=== PATIENT | male | born 1945 | race Caucasian/White ===

== ENCOUNTER 2017-11-06 17:16 | Inpatient (IN) | payer MEDICARE, MEDICAID ==
[~2017-11-06] VITALS: Ht 162.6 cm; Wt 52.7 kg
[~2017-11-06 17:16] MED LIST: ASPI81TA31 PO; ATOR40TA PO; BENA20TA9 PO; CARV25TA2 PO; CLOP75TA15 PO; DOCU100C36 PO; EPLE25TA10 PO; FURO40TA5 PO; HYDR50CA5 PO; LISI-603 PO; MELO-107 PO; OXYB10TA PO; PREG50CA PO; SIMV20TA6 PO; TRAM50TA PO
[2017-11-06] MEDS ORDERED: IV NORMAL SALINE 500 ML BAG IV ONE (17:30)
--- NOTE | 2017-11-06 17:32 | NUR ---
PATIENT SHIELDED PATIENT UNABLE TO LIFT HEAD 111@5.6 W/ GRID END EXAM 16:23
[2017-11-06] MEDS ORDERED: TRAZ-214 PO (17:36)
[2017-11-06] MEDS ORDERED: GABA600T2 PO (17:36)
[2017-11-06] MEDS ORDERED: QUET25TA PO (17:36)
[2017-11-06] MEDS ORDERED: OMEP20TA5 PO (17:36)
[2017-11-06] MEDS ORDERED: FINA5TAB3 PO (17:36)
[2017-11-06] MEDS ORDERED: ALBU2.5V38 NEB (17:36)
[2017-11-06] MEDS ORDERED: HYDR-548 PO (17:36)
[2017-11-06] MEDS ORDERED: LIDO TP (17:36)
[2017-11-06] MEDS ORDERED: POTA10TA10 PO (17:36)
[2017-11-06] MEDS ORDERED: LIDO30AD10 TD (17:36)
[2017-11-06] MEDS ORDERED: NITR0.4T48 SL (17:36)
[2017-11-06] MEDS ORDERED: FERR325T28 PO (17:36)
[2017-11-06] MEDS ORDERED: ISOS60TA4 PO (17:36)
[2017-11-06] MEDS ORDERED: TAMS0.4C34 PO (17:36)
[2017-11-06] MEDS ORDERED: FURO40TA5 PO (17:36)
[2017-11-06] MEDS ORDERED: MAGN400T6 PO (17:36)
[2017-11-06] MEDS ORDERED: METO-357 PO (17:36)
[2017-11-06] MEDS ORDERED: BENZ200C53 PO (17:36)
[2017-11-06] MEDS ORDERED: METH-406 PO (17:36)
[2017-11-06] MEDS ORDERED: LISI2.5T2 PO (17:36)
[2017-11-06 17:47] LABS: BASOPHILS # (AUTO) 0.1 K/uL (0.0-8.0); EOSINOPHILS # (AUTO) 0.2 K/uL (0.0-0.7); EOSINOPHILS % (AUTO) 3.2 % (0.0-7.0); HEMATOCRIT 37.1 % (36.7-47.1); HEMOGLOBIN 11.9 g/dL (12.5-16.3); LYMPHOCYTES # (AUTO) 0.9 K/uL (20.0-40.0); LYMPHOCYTES % (AUTO) 15.7 % (20.5-51.5); MEAN CORPUSCULAR HEMOGLOBIN 28.7 uug (23.8-33.4); MEAN CORPUSCULAR HGB CONC 32 g/dL (32.5-36.3); MEAN CORPUSCULAR VOLUME 89.6 fL (73.0-96.2); MONOCYTES # (AUTO) 0.4 K/uL (2.0-10.0); MONOCYTES % (AUTO) 6.8 % (0.0-11.0); NEUTROPHILS # (AUTO) 4.2 K/uL (1.8-8.9); NEUTROPHILS % (AUTO) 73.3 % (38.5-71.5); PLATELET COUNT (AUTO) 134 K/uL (152-348); RED BLOOD CELL COUNT(AUTO) 4.14 MIL/uL (4.06-5.63); WHITE BLOOD COUNT (AUTO) 5.7 K/uL (3.6-10.2)
[2017-11-06] MEDS ORDERED: FUROSEMIDE 40 MG/4 ML VIAL ONE (17:52)
[2017-11-06 17:54] LABS: CARBON DIOXIDE 28 mmol/L (21-32); CHLORIDE 104 mmol/L (98-107); CREATININE 1.2 mg/dL (0.6-1.3); GLUCOSE 111 mg/dL (74-106); POTASSIUM 4.3 mmol/L (3.5-5.1); UREA NITROGEN, BLOOD 28 mg/dL (7-18)
[2017-11-06] MEDS ORDERED: MORPHINE SULFATE 2 MG/1 ML DISP.SYRIN IV ONE (18:00)
[2017-11-06] MEDS ORDERED: FUROSEMIDE 20 MG/2 ML VIAL IV ONE (18:00)
[2017-11-06] MEDS ORDERED: MORPHINE SULFATE 4 MG/1 ML DISP.SYRIN ONE (18:01)
--- NOTE | 2017-11-06 18:02 | NUR ---
Patient is resting comfortably on gurney while watching bedside TV, for telemetry admission@this time.
[2017-11-06 18:05] LABS: ALANINE AMINOTRANSFERASE 33 U/L (16-63); ALKALINE PHOSPHATASE 121 U/L (50-136); ASPARTATE AMINOTRANSFERASE 25 U/L (15-37); BILIRUBIN,DIRECT 0.2 mg/dL (0.0-0.2); BILIRUBIN,TOTAL 0.7 mg/dL (0.2-1.0); TOTAL PROTEIN, SERUM 7.1 g/dL (6.4-8.2)
--- NOTE | 2017-11-06 18:18 | NUR ---
Urinal provided. Comfort and safety measures maintained.
--- NOTE | 2017-11-06 18:24 | NUR ---
Patient is admitted to 2nd floor TELEMETRY , under the care of Dr. Brian Quiroz. MRSA swab sent to lab, pending assigned bed & nurse from 2nd floor studio operations engineer in charge Rohoni or next shift studio operations engineer in charge at this time.
[2017-11-06 19:00] VITALS: BP 120/72
--- NOTE | 2017-11-06 19:08 | NUR ---
SBAR to WALLY Pritchard accordingly, still for telemetry admission
--- NOTE | 2017-11-06 20:02 | NUR ---
REPORT GIVEN TO TELEMETRY NURSE, WALLY BROWN
--- NOTE | 2017-11-06 20:25 | NUR ---
Pt. admitted to TELEMETRY, under care of Dr. NAIR Belongs List completed
--- NOTE | 2017-11-06 21:28 | NUR ---
2044 PT RECEIVED IN MED SURG/ TELE. PT COMPLAINING OF PAIN. AWAITING ORDERS. 2100 PT RESTING IN ROOM .AWAITING ON ORDER. Addendum: 11/06/17 at 2145 by Darby Merchant RN 2129 PT REMOVING LEADS. NOTIFIED. THAT PT AWAITING PAIN MEDS. Addendum: 11/06/17 at 2152 by Darby Merchant RN 2150 MARQUITA NAIR AWARE. DETERMINING WHICH MEDICATION TO ORDER. PT REFUSING ANY QUESTIONS OR ANSWERS TO COMPLETE ADMISSION ASSESSMENT PROFILE. Addendum: 11/07/17 at 0206 by Darby Merchant RN 2300 PT RESTLESS. SHOUTING FOR MORE PAIN MEDICATION. BUSINESS OFFICE ASSISTANT , CHARGE NURSE AT BEDSIDE. 0100 HALDOL GIVEN. BUMEX IVBP GIVEN. TELE BOX BACK ON. PT REFUSING TO ANSWER ANY QUESTION FOR ASSESSMENT PROFILE 0200 PT ASLEEP Addendum: 11/07/17 at 0730 by Darby Merchant RN 0300 PT ASLEEP 0500 PT C/O PAIN 0700 REPORT GIVEN TO DAY SHIFT NURSE . PT RESTING IN ROOM
[2017-11-06] MEDS ORDERED: MORPHINE SULFATE 2 MG/1 ML DISP.SYRIN IV STA (21:53)
[2017-11-06] MEDS ORDERED: POTASSIUM CHLORIDE 20 MEQ TAB.PRT.SR PO ONE (22:00)
[2017-11-06] MEDS ORDERED: BUMETANIDE INJ 8 MG in IV DEXTROSE 5% 48 ML IV ONE (22:00)
[2017-11-06] MEDS ORDERED: Z GUARD REMEDY PASTE 57 GM TUBE TOP PRN (22:00)
[2017-11-06] MEDS ORDERED: NITROGLYCERIN 0.4 MG/TAB BOTTLE SL PRN (22:00)
[2017-11-06] MEDS: ALBUTEROL SULFATE 2.5 MG/3 ML NEBU NEB SCH ×3 (22:00→23:03)
[2017-11-06] MEDS ORDERED: MAGNESIUM OXIDE 400 MG TABLET PO ONE (22:00)
[2017-11-06] MEDS ORDERED: LIDOCAINE 5% PATCH TD SCH (22:00)
[2017-11-06] MEDS ORDERED: ONDANSETRON 4 MG/2 ML VIAL IV PRN (22:00)
[2017-11-06] MEDS ORDERED: ACETAMINOPHEN 325 MG TABLET PO PRN (22:00)
[2017-11-06] MEDS ORDERED: MORPHINE SULFATE 4 MG/1 ML DISP.SYRIN IV STA (22:16)
--- NOTE | 2017-11-06 22:34 | NUR ---
After meds was scanned, pt refused HHN tx. No distress noted. supervisor assembly was in the room. Meds return.
[2017-11-06] MEDS ORDERED: BUMETANIDE 2.5 MG/10 ML VIAL ONE (23:53)
[2017-11-06] MEDS ORDERED: BUMETANIDE 1 MG/4 ML VIAL ONE (23:54)
[2017-11-06] MEDS: OXYCODONE HCL 5 MG TABLET PO PRN (23:55)
[2017-11-07] MEDS ORDERED: HALOPERIDOL LACTATE 5 MG/1 ML VIAL IM ONE (00:15)
[2017-11-07] MEDS: ALBUTEROL SULFATE 2.5 MG/3 ML NEBU NEB SCH ×8 (01:34→23:11)
--- NOTE | 2017-11-07 01:34 | NUR ---
Pt asleep. No distress noted. HHN tx not given. WALLY Pastor notified.
[2017-11-07 04:10] LABS: BASOPHILS # (AUTO) 0.1 K/uL (0.0-8.0); BASOPHILS % (AUTO) 1.4 % (0.0-2.0); EOSINOPHILS # (AUTO) 0.3 K/uL (0.0-0.7); EOSINOPHILS % (AUTO) 5.1 % (0.0-7.0); HEMATOCRIT 34.6 % (36.7-47.1); HEMOGLOBIN 11.2 g/dL (12.5-16.3); LYMPHOCYTES # (AUTO) 1.2 K/uL (20.0-40.0); MEAN CORPUSCULAR HEMOGLOBIN 28.6 uug (23.8-33.4); MEAN CORPUSCULAR HGB CONC 32 g/dL (32.5-36.3); MEAN CORPUSCULAR VOLUME 88.9 fL (73.0-96.2); MONOCYTES # (AUTO) 0.4 K/uL (2.0-10.0); MONOCYTES % (AUTO) 7.2 % (0.0-11.0); NEUTROPHILS # (AUTO) 4.2 K/uL (1.8-8.9); NEUTROPHILS % (AUTO) 67.3 % (38.5-71.5); PLATELET COUNT (AUTO) 117 K/uL (152-348); WHITE BLOOD COUNT (AUTO) 6.2 K/uL (3.6-10.2)
[2017-11-07 04:22] VITALS: BP 106/71
[2017-11-07 04:26] LABS: ALANINE AMINOTRANSFERASE 33 U/L (16-63); ALKALINE PHOSPHATASE 104 U/L (50-136); ASPARTATE AMINOTRANSFERASE 21 U/L (15-37); BILIRUBIN,TOTAL 0.6 mg/dL (0.2-1.0); CARBON DIOXIDE 30 mmol/L (21-32); CHLORIDE 107 mmol/L (98-107); CHOLESTEROL 112 mg/dL (<200); CREATININE 1.1 mg/dL (0.6-1.3); GLUCOSE 87 mg/dL (74-106); HDL CHOLESTEROL 32 mg/dL (40-60); MAGNESIUM 1.9 mg/dL (1.8-2.4); PHOSPHOROUS 4.2 mg/dL (2.5-4.9); POTASSIUM 3.9 mmol/L (3.5-5.1); TOTAL PROTEIN, SERUM 6.5 g/dL (6.4-8.2); TRIGLYCERIDES 59 MG/DL (30-150); UREA NITROGEN, BLOOD 27 mg/dL (7-18)
[2017-11-07 05:00] LABS: THYROID STIMULATING HORMONE 7.999 mIU/mL (0.358-3.740)
[2017-11-07] MEDS: PANTOPRAZOLE SODIUM 40 MG TABLET.DR PO SCH (06:50)
[2017-11-07] MEDS: OXYCODONE HCL 5 MG TABLET PO PRN ×4 (06:50→18:20)
--- NOTE | 2017-11-07 08:00 | NUR ---
received patient awake on bed. on tele sinus rhythm with HR of 87. no signs of respiratory distress noted.safety measures initiated. kept call light within reach
[2017-11-07] MEDS: FINASTERIDE 5 MG TABLET PO SCH (08:53)
[2017-11-07] MEDS: LISINOPRIL 5 MG TABLET PO SCH (08:54)
[2017-11-07] MEDS: FERROUS SULFATE 325 MG TABEC PO SCH (08:55)
[2017-11-07] MEDS: TAMSULOSIN HCL 0.4 MG CAP.SR.24H PO SCH (08:55)
[2017-11-07] MEDS: ISOSORBIDE MONONITRATE 60 MG TAB.SR.24H PO SCH (08:55)
[2017-11-07] MEDS: MAGNESIUM OXIDE 400 MG TABLET PO SCH (08:55)
[2017-11-07] MEDS: METHOCARBAMOL 750 MG TABLET PO SCH ×4 (08:56→20:11)
[2017-11-07] MEDS ORDERED: METOPROLOL SUCCINATE XL 50 MG TAB.SR.24H PO SCH (09:00)
--- NOTE | 2017-11-07 09:00 | NUR ---
IV placement was pulled out by patient. IV site shifted from LFA to L hand, guage 22, IV site patent and intact.
[2017-11-07] MEDS: MAGNESIUM HYDROXIDE 30 ML LIQUID UDC PO PRN (09:01)
[2017-11-07] MEDS: ENOXAPARIN SODIUM 40 MG/0.4 ML DISP.SYRIN SQ SCH (09:07)
[2017-11-07] MEDS ORDERED: FUROSEMIDE 40 MG/4 ML VIAL IV ONE (11:00)
--- NOTE | 2017-11-07 11:00 | NUR ---
patient complaint of SOB and generalized body pain with a pain scale of 10. lung assessment done. audible sounds heard bilaterally on lower lobe of the lungs. sumitd Gael HILL to provide breathing treatment. Lasix given via IV. oxycodone given.
[2017-11-07 11:35] VITALS: BP 129/64
[2017-11-07] MEDS: LIDOCAINE 5% PATCH TD SCH (11:35)
[2017-11-07] MEDS: NORMAL SALINE NASAL 45 ML BOTTLE NS PRN ×2 (14:58→20:48)
[2017-11-07 15:24] VITALS: BP 111/63
--- NOTE | 2017-11-07 16:00 | NUR ---
seen and examined by Dr. Denilson Quiroz.
[2017-11-07] MEDS ORDERED: LACTULOSE 20 G/30 ML LIQUID UDC PO ONE (18:30)
[2017-11-07] MEDS ORDERED: BISACODYL 10 MG SUPP.RECT RC PRN (18:30)
--- NOTE | 2017-11-07 18:39 | NUR ---
on tele sinus rhythm with HR of 72. no sign of respiratory distress. vital signs WNL. safety measures maintained at all times.
[2017-11-07 19:00] VITALS: BP 120/68
--- NOTE | 2017-11-07 19:20 | NUR ---
RECEIVED SHIFT REPORT. PT IN BED, NO COMPLAINTS AT THIS TIME. TELE SINUS RHYTHM.
[2017-11-07] MEDS ORDERED: BUMETANIDE INJ 4 MG in IV DEXTROSE 5% 24 ML IV ONE (19:45)
[2017-11-07] MEDS ORDERED: BUMETANIDE 1 MG/4 ML VIAL ONE (20:14)
[2017-11-07] MEDS ORDERED: TRAZODONE 100 MG TABLET ONE (20:25)
[2017-11-07] MEDS ORDERED: QUETIAPINE FUMARATE 25 MG TABLET PO SCH (21:00)
[2017-11-07] MEDS ORDERED: TRAZODONE 100 MG TABLET PO SCH ×2 (21:00)
[2017-11-08] VITALS: BP 119/63
[2017-11-08] MEDS: OXYCODONE HCL 5 MG TABLET PO PRN ×5 (00:14→15:13)
--- NOTE | 2017-11-08 00:37 | NUR ---
20 G IV ACCESS IN LEFT HAND PULLED OUT BY PT. NEW IV ACCESS ESTABLISHED IN LEFT FOREARM, 22 G. IV ACCESS FLUSHING WELL.
[2017-11-08] MEDS: ALBUTEROL SULFATE 2.5 MG/3 ML NEBU NEB SCH ×3 (02:37→11:30)
[2017-11-08 04:00] VITALS: BP 135/75
[2017-11-08] MEDS: MAGNESIUM HYDROXIDE 30 ML LIQUID UDC PO PRN ×2 (04:00→12:04)
--- NOTE | 2017-11-08 05:46 | NUR ---
Patient slept poorly t/o shift. A/O x 4. TELE SR with PVC with occasional pacing. O2 2L NC. Patient had good urine output t/o shift. Patient c/o of 9/10 neck, back and knee pain t/o shift. Meds given, stated relief. Small BM today. Skin intact. Fall precaution observed t/o shift. Bed alarm kept on t/o shift despite patient's request to have it turned on. Room is left clutter free. Bed in low and locked position. Afebrile. All meds given as ordered. All needs met.
[2017-11-08] MEDS: PANTOPRAZOLE SODIUM 40 MG TABLET.DR PO SCH (06:13)
[2017-11-08] MEDS ORDERED: CARVEDILOL 3.125 MG TABLET PO SCH (08:00)
[2017-11-08] MEDS: LIDOCAINE 5% PATCH TD SCH (08:21)
[2017-11-08] MEDS: FERROUS SULFATE 325 MG TABEC PO SCH (08:22)
[2017-11-08] MEDS: TAMSULOSIN HCL 0.4 MG CAP.SR.24H PO SCH (08:22)
[2017-11-08] MEDS: MAGNESIUM OXIDE 400 MG TABLET PO SCH (08:22)
[2017-11-08] MEDS: LISINOPRIL 5 MG TABLET PO SCH (08:23)
[2017-11-08] MEDS: METHOCARBAMOL 750 MG TABLET PO SCH ×2 (08:23→13:22)
[2017-11-08] MEDS: FINASTERIDE 5 MG TABLET PO SCH (08:23)
[2017-11-08] MEDS: ENOXAPARIN SODIUM 40 MG/0.4 ML DISP.SYRIN SQ SCH (08:25)
[2017-11-08] MEDS ORDERED: ASPIRIN EC 81 MG TABLET.DR PO SCH (09:00)
[2017-11-08] MEDS: ISOSORBIDE MONONITRATE 60 MG TAB.SR.24H PO SCH (09:06)
--- NOTE | 2017-11-08 11:30 | NUR ---
SEEN AND EXAMINED BY DR YUDI NAIR. DISCUSSED WITH BM STATUS OF PATIENT. RECEIVED ORDER TO ADMINISTER BISACODYL SUPPOSITORY AND ANOTHER MILK OF MAGNESIA. ORDERS READ BACK AND CARRIED OUT.
[2017-11-08 11:53] VITALS: BP 136/73
[2017-11-08 12:12] LABS: BASOPHILS # (AUTO) 0.1 K/uL (0.0-8.0); BASOPHILS % (AUTO) 0.8 % (0.0-2.0); EOSINOPHILS # (AUTO) 0.1 K/uL (0.0-0.7); EOSINOPHILS % (AUTO) 1.6 % (0.0-7.0); HEMATOCRIT 36.5 % (36.7-47.1); HEMOGLOBIN 11.7 g/dL (12.5-16.3); LYMPHOCYTES # (AUTO) 0.9 K/uL (20.0-40.0); LYMPHOCYTES % (AUTO) 12.6 % (20.5-51.5); MEAN CORPUSCULAR HEMOGLOBIN 28.7 uug (23.8-33.4); MEAN CORPUSCULAR HGB CONC 32 g/dL (32.5-36.3); MEAN CORPUSCULAR VOLUME 89.1 fL (73.0-96.2); MONOCYTES # (AUTO) 0.4 K/uL (2.0-10.0); MONOCYTES % (AUTO) 5.8 % (0.0-11.0); NEUTROPHILS % (AUTO) 79.2 % (38.5-71.5); PLATELET COUNT (AUTO) 147 K/uL (152-348); WHITE BLOOD COUNT (AUTO) 7.5 K/uL (3.6-10.2)
[2017-11-08 13:31] LABS: CARBON DIOXIDE 32 mmol/L (21-32); CHLORIDE 99 mmol/L (98-107); GLUCOSE 98 mg/dL (74-106); MAGNESIUM 2.2 mg/dL (1.8-2.4); PHOSPHOROUS 3.3 mg/dL (2.5-4.9); POTASSIUM 3.6 mmol/L (3.5-5.1); UREA NITROGEN, BLOOD 23 mg/dL (7-18)
[2017-11-08] MEDS ORDERED: METO2.5T2 PO (13:40)
[2017-11-08] MEDS ORDERED: CARV3.12 PO (13:40)
[2017-11-08] MEDS ORDERED: CLON0.5T PO (13:42)
[2017-11-08 15:39] VITALS: BP 136/77
--- NOTE | 2017-11-08 16:50 | NUR ---
Discharge INSTRUCTIONS GIVEN TO PT. pT VERBALIZED UNDERSTANDING. pT TO f/u with pmd within 1 week. Pt to go back to [facility] assisted living. Pt to f/u with vaccinations with his PMD no sob noted upon d/c. Pt tolerates o2 sat of 96% on r/a. Pt breathing much better compared to yesterday. Pt sent back via [employer] voucher.
[2017-12-06] MEDS ORDERED: TRAZODONE 100 MG TABLET PO SCH (21:00)
[2017-12-06] MEDS ORDERED: QUETIAPINE FUMARATE 25 MG TABLET PO SCH (21:00)
== END 2017-11-08 17:15 | DRG 291 ==
LOC: ER 17:19 → TELE 20:08
PROVIDERS: ADMIT Nurse Practitioner Acute Care; ATTEND Nurse Practitioner Acute Care
DX: I11.0 Hypertensive heart disease with heart failure (principal); J96.01 Acute respiratory failure with hypoxia; I50.43 Acute on chronic combined systolic (congestive) and diastolic (congestive) heart failure; D69.6 Thrombocytopenia, unspecified; E03.9 Hypothyroidism, unspecified; F32.9 Major depressive disorder, single episode, unspecified; I25.5 Ischemic cardiomyopathy; G62.9 Polyneuropathy, unspecified; I25.10 Atherosclerotic heart disease of native coronary artery without angina pectoris; E78.5 Hyperlipidemia, unspecified; F17.210 Nicotine dependence, cigarettes, uncomplicated; G89.4 Chronic pain syndrome; H91.90 Unspecified hearing loss, unspecified ear; K59.00 Constipation, unspecified; Z95.1 Presence of aortocoronary bypass graft; Z95.810 Presence of automatic (implantable) cardiac defibrillator; Z71.6 Tobacco abuse counseling; Z98.61 Coronary angioplasty status
CPT/HCPCS: 36415; 70030-TC; 71045; 83605; 83735; 84100; 84443; 85025; 85730; 87040; 93005; 93307; 94640; 94664; A4663; J1630; J1650; J1940; J2270; J3490; J7040; J7060